=== PATIENT | female | born 1995 | race Caucasian/White ===

== ENCOUNTER 2021-07-10 13:15 | Inpatient (IN) | payer OTHER ==
[~2021-07-10] VITALS: Ht 162.6 cm; Wt 68.0 kg
--- NOTE | 2021-07-10 13:30 | NUR ---
PTE REFIERE DOLOR ABDOMINAL EN CUADRANTE SUPERIOR DERECHO Y NAUSEAS,DESDE AMAN
--- NOTE | 2021-07-10 13:55 | NUR ---
PTE EVALUADA POR EL DR LOPES QUIEN ORDENA EL TX. MS K TREJO ORIENTA SOBRE EL TX ORDENADO, LO CUAL REFIERE ENTENDER, REALIZA PRUEBAS DE LABORATORIO Y ADMINISTRA MEDICAMENTOS FLORES ORDEN MEDICA Y SIGUIENDO MEDIDAS ASEPTICAS. CT PO NOTIFICADO A PERSONAL DE TURNO.
--- NOTE | 2021-07-10 18:00 | NUR ---
SE RECIBE PTE ALERTA Y ORIENTADA X3 EN GISELLE CON BARANDAS ELEVADAS. PTE CON H/L EL CUAL SE ENCUENTRA PATENTE. PTE EN ESPERA DE RESULTADOS DE LABORATORIO Y ESTUDIO DE CT.
--- NOTE | 2021-07-10 23:00 | NUR ---
SE RECIBE PTE ALERTA Y ORIENTADA X 3 ESFERAS EN CAMA EN COMPANIA DE FAMILIAR. PRESENTANDO BUEN PATRON RESPIRATORIO. RECIBIENDO IV'S KCL 40MEQ/0.9NSS BAJANDO A 150ML/HR AREA DE VENOPUNCION SHASHANK DE EDEMA Y ERITEMA. PENDIENTE BMP LUEGO DEL KCL. PENDIENTE CONSULTA CON DR.NICOLAS JAIN. SE MANTIENE BAJO OBSERVACION.
--- NOTE | 2021-07-10 23:55 | NUR ---
SE ADMINISTRA MEDICAMENTO EL CUAL TOLERA
--- NOTE | 2021-07-11 07:55 | NUR ---
SE RECIBE PTE DEL TURNO ANTERIOR, ALERTA Y ORIENTADA EN MAYCO LUANA ESFERAS, UBICADA EN GISELLE NIVEL MAS BAJO, BOND DE IDENTIFICACION Y BARANDAS ELEVADAS POR PRECAUCION, EN COMPANIA DE FAMILIAR. SE OBSERVA CON BUEN PATRON RESPIRATORIO Y PIEL TIBIA AL TACTO. IV PATENTE Y SHASHANK DE EDEMA O ERITEMA CON 0.9% NSS @100ML/HR. PENDIENTE CONSULTA CON DR Meet JAIN. SE MANTIENE BAJO OBSERVACION.
[2021-07-12] MEDS ORDERED: ULTRACET PO (11:58)
== END 2021-07-12 14:13 | disposition home or self-care (01) | DRG 343 ==
LOC: ER 13:15 → SURG 07-11 10:09
PROVIDERS: ADMIT Surgery; ATTEND Surgery
PROC: BW21YZZ Computerized Tomography (CT Scan) of Abdomen and Pelvis using Other Contrast (ICD-10-PCS; principal; 2021-07-11 11:00)
PROC: 0DTJ4ZZ Resection of Appendix, Percutaneous Endoscopic Approach (ICD-10-PCS; principal; 2021-07-11 11:00)
DX: K35.890 Other acute appendicitis without perforation or gangrene (principal); Z20.822 Contact with and (suspected) exposure to COVID-19